=== PATIENT | female | born 1965 | race Caucasian/White ===

== ENCOUNTER → 2017-03-20 | Outpatient (CLI) | payer OTHER ==
--- NOTE | 2017-03-20 18:18 | Diagnostic Imaging Report ---
EXAMINATION: Right breast ultrasound. INDICATION: Asymmetry seen on mammography. COMPARISON: Ultrasound of 01/11/2016. FINDINGS: The mass seen on mammography corresponds to a stable 1.6 cm simple cyst in the retroareolar region. The four quadrants and retroareolar region of the right breast were scanned with no other abnormality identified. IMPRESSION: Stable retroareolar 1.6 cm simple cyst explaining the mass seen on mammography. Return to annual screening mammogram. ACR BI-RADS Category 2: Benign findings. Result letter will be mailed to the patient. Note: At least 10% of breast cancer is not imaged by mammography. Dictated by: Dictated on workstation # [id number]
== END ==
LOC: RAD 12:44
PROVIDERS: ATTEND Nurse Practitioner Family
DX: N60.01 Solitary cyst of right breast (principal); N64.89 Other specified disorders of breast
CPT/HCPCS: 76641